=== PATIENT | female | born 1970 | race Two or more races ===

== ENCOUNTER 2020-07-07 08:11 | Emergency (ER) | payer BC ==
[~2020-07-07] VITALS: Ht 165.1 cm; Wt 72.6 kg
[2020-07-07 08:16] VITALS: Ht 165.1 cm; Wt 72.6 kg
[2020-07-07 08:41] LABS: BASOPHIL % 0.5 % (0-2); PLATELET COUNT 285 x10^3mcL (130-400)
[2020-07-07 08:49] LABS: CALCIUM 8.9 mg/dL (8.5-10.1); CARBON DIOXIDE 27.6 mmol/L (21-32); CHLORIDE SERUM 99 mmol/L (98-107); CREATININE SERUM 0.7 mg/dL (0.6-1.0); GFR1 > 60 mL/min; GLUCOSE SERUM 101 mg/dL (74-106); POTASSIUM SERUM 3.6 mmol/L (3.5-5.1); SODIUM SERUM 132 mmol/L (136-145)
[2020-07-07 08:52] LABS: RED CELL DISTRIBUTION WIDTH 14.7 % (11.5-14.5)
[2020-07-07 08:54] LABS: ALBUMIN 3.9 g/dL (3.4-5.0); ALKALINE PHOSPHATASE 80 U/L (46-116); ALT/SGPT 27 U/L (14-59); AST/SGOT 17 U/L (15-37); BILIRUBIN TOTAL 0.5 mg/dL (0.20-1.00); TOTAL PROTEIN, SERUM 7.7 g/dL (6.4-8.2)
[2020-07-07 12:41] VITALS: BP 118/76
== END 2020-07-07 12:45 | disposition home or self-care (01) ==
LOC: ED 08:11
PROVIDERS: Student in an Organized Health Care Education/Training Program
DX: R07.89 Other chest pain (principal)
CPT/HCPCS: Q0092